=== PATIENT | female | born 1990 | race Caucasian/White ===

== ENCOUNTER 2017-05-24 17:39 | Observation (INO) ==
--- NOTE | 2017-05-24 18:36 | Emergency Department Note ---
Disposition Clinical Impression: Visual hallucinations Depression Qualifiers: Depression Type: unspecified Qualified Code(s): F32.9 - Major depressive disorder, single episode, unspecified Disposition: Still a Patient Condition: Fair Referrals: NONE,PCP [Primary Care Provider] - General Adult HPI - General Chief complaint: ED Altered Mental Status Stated complaint: AMS/SI Time Seen by Provider: 05/24/17 18:35 Source: patient, family Mode of arrival: ambulatory Limitations: no limitations Nursing Notes Reviewed: Yes Vital Signs Reviewed: Yes - History of Present Illness HPI Narrative: 26-year-old female who father brings her in after she was found on the floor she states she took 5 or 6 gabapentin because her back hurt. He became angry in the lobby and that she was going to kill somebody or herself. The patient states she is having visual and auditory hallucinations also. 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 12/11/15 Clindamycin [Cleocin] 300 mg PO BID 7 Days capsule 12/11/15 Loratadine/Pseudophed (12 HR) 1 each PO BID PRN #14 tab.er.12h 01/24/16 [Claritin D (12HR)] NALOXONE 4 MG Nasal Orange [Narcan] 4 mg NS ONCE PRN #1 spray 03/07/17 Allergies Allergy/AdvReac Type Severity Reaction Status Date / Time ibuprofen Allergy Swelling Verified 05/24/17 18:00 of the Eye All systems ED: reviewed and negative except as stated. Constitutional: Denies: fever, chills, weakness, weight change Eyes: Denies: eye pain, eye discharge, vision change ENT ED: Denies: ear pain, throat pain, dental pain, hearing loss, epistaxis, congestion, dysphagia Cardiovascular: Denies: chest pain, palpitations, dyspnea on exertion, edema, syncope Respiratory: Denies: cough, dyspnea, wheezes, hemoptysis, stridor Gastrointestinal: Denies: abdominal pain, nausea, vomiting, diarrhea, constipation, hematemesis, melena, hematochezia Genitourinary: Denies: dysuria, frequency, hematuria, discharge Musculoskeletal: Denies: back pain, neck pain, arthralgia, myalgia Integumentary: Denies: rash, abrasion, lesions Neurological: Denies: headache, weakness, numbness, paresthesias, confusion, abnormal gait, vertigo Psychiatric: Reports: depression, suicidal thoughts, auditory hallucinations, visual hallucinations. 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 - Social History Smoking Status: Current every day smoker Smokeless Tobacco Status: No Alcohol use: Reports: none Drug use: Reports: methamphetamine, IV Drug Use, other Physical Exam - General Limitations: no limitations General appearance: alert, other - Head Head exam: atraumatic, normocephalic, normal inspection - Eye Eye exam: Present: normal appearance, PERRL, EOMI - ENT ENT exam: normal exam, normal oropharynx, mucous membranes moist - Neck Neck exam: Present: normal inspection, full ROM, trachea midline - Chest Chest inspection: Present: normal inspection - Respiratory Respiratory exam: Present: normal lung sounds bilaterally - Cardiovascular Cardiovascular exam: Present: regular rate, normal rhythm, normal heart sounds - Abdominal Exam Abdominal exam: Present: soft, Non-Tender. Absent: tenderness, distention, guarding, rebound, rigidity - Extremities Exam Extremities exam: Present: normal inspection, full ROM. Absent: tenderness, pedal edema - Expanded Lower Extremity Exam Neurovascular/Tendon exam: Absent: motor deficit, sensory deficit, tendon deficit Gait: observed and normal - Back Exam Back exam: Present: normal inspection, full ROM. Absent: tenderness - Neurological Exam Neurological exam: Present: alert, oriented X3 - Psychiatric Psychiatric exam: Present: normal affect, normal mood - Skin Skin exam: Present: warm, dry, intact, normal color Course Vital Signs Temperature 97.7 F 05/24/17 17:55 Pulse Rate 110 05/24/17 17:55 Respiratory Rate 18 05/24/17 17:55 Blood Pressure 116/65 05/24/17 17:55 O2 Sat by Pulse Oximetry 100 05/24/17 17:55 Temperature 97.7 F 05/24/17 17:55 Pulse Rate 110 05/24/17 17:55 Respiratory Rate 18 05/24/17 17:55 Blood Pressure 116/65 05/24/17 17:55 O2 Sat by Pulse Oximetry 100 05/24/17 17:55 Oxygen Delivery Oxygen Delivery Room Air Medical Decision Making - Lab Data Result diagrams: 05/24/17 18:45 Lab Results 05/24/17 05/24/17 05/24/17 Range/Units 18:08 18:17 18:45 WBC 10.1 (4.3-11.1) K/mcL RBC 4.52 (3.82-4.97) M/mcL Hgb 13.6 (11.5-15.4) g/dL Hct 43.1 (35.3-44.9) % MCV 95.4 (83.0-100.0) fL MCH 30.1 (28.0-33.3) pg MCHC 31.6 (31.6-35.5) g/dL RDW 12.9 (11.5-14.5) % Plt Count 313 (140-400) K/mcL MPV 10.4 (9.4-12.4) fL Immature Gran % 0.4 (0-4) % Seg Neutrophils % 45.7 % Lymphocytes % 42.1 % Monocytes % 7.6 % Eosinophils % 2.7 % Basophils % 1.5 % Neutrophils # 4.6 (1.6-8.9) K/mcL Lymphocytes # 4.3 (0.6-4.6) K/mcL Monocytes # 0.8 (0.0-1.3) K/mcL Eosinophils # 0.3 (0.0-0.6) K/mcL Basophils # 0.2 (0.0-0.2) K/mcL POC Glucose 120 H (58-89) Urine Opiates Screen Negative (Giprbx=704) ng/mL Ur Barbiturates Screen Negative (Oyxqws=066) ng/mL Ur Phencyclidine Scrn Negative (Cutoff=25) ng/mL Ur Amphetamines Screen Positive H (Bkvdxp=2567) ng/mL U Benzodiazepines Scrn Positive H (Oxlhly=998) ng/mL Urine Cocaine Screen Negative (Cutoff= 300) ng/mL U Marijuana (THC) Screen Negative (Cutoff = 50) ng/mL S.B.A.R. - S.B.A.R. Recommendation: Recommendation based on pending studies, treatments, or consults S.B.A.R. Report Given to: Dr Nguyễn LangfordB.A.Hany Repor Time: 19:04
[2017-05-24 18:45] LABS: Amphetamine Screen,Urine Positive ng/mL (Cutoff=1000); Barbiturate Screen,Urine Negative ng/mL (Cutoff=200); Benzodiazepines Screen,Urine Positive ng/mL (Cutoff=200); Cannabinoid Screen,Urine Negative ng/mL (Cutoff = 50); Cocaine Screen,Urine Negative ng/mL (Cutoff= 300); Opiate Screen,Urine Negative ng/mL (Cutoff=300); Phencyclidine Screen,Urine Negative ng/mL (Cutoff=25)
[2017-05-24 18:57] LABS: Basophils # 0.2 K/mcL (0.0-0.2); Basophils % 1.5 %; Eosinophils # 0.3 K/mcL (0.0-0.6); Eosinophils % 2.7 %; Hematocrit 43.1 % (35.3-44.9); Hemoglobin 13.6 g/dL (11.5-15.4); Immature Granulocytes % 0.4 % (0-4); Lymphocytes # 4.3 K/mcL (0.6-4.6); Lymphocytes % 42.1 %; Mean Corpuscular HGB Conc 31.6 g/dL (31.6-35.5); Mean Corpuscular Hemoglobin 30.1 pg (28.0-33.3); Mean Corpuscular Volume 95.4 fL (83.0-100.0); Mean Platelet Volume 10.4 fL (9.4-12.4); Monocytes # 0.8 K/mcL (0.0-1.3); Monocytes % 7.6 %; Neutrophils # 4.6 K/mcL (1.6-8.9); Platelet Count 313 K/mcL (140-400); Red Blood Count 4.52 M/mcL (3.82-4.97); Red Cell Distribution Width 12.9 % (11.5-14.5); Segmented Neutrophils % 45.7 %
[2017-05-24 19:07] LABS: Acetaminophen < 1.0 mcg/mL (10-30); Ethanol < 10 mg/dL (0-10); Salicylate < 5.0 mg/dL (15.0-30.0)
[2017-05-24 19:12] LABS: Bilirubin,Urine Negative (Negative); Blood,Urine Negative (Negative); Clarity,Urine Clear (Clear); Color,Urine Yellow (Yellow); Glucose,Urine (UA) Normal (Normal); Ketones,Urine Negative (Negative); Leukocyte Esterase,Urine Negative (Negative); Nitrite,Urine Negative (Negative); Protein,Urine Negative (Neg-Trace); Specific Gravity,Urine 1.027 (1.010-1.025); Urobilinogen,Urine Normal (Normal)
[2017-05-24 19:18] LABS: BUN/Creatinine Ratio 18 (6-26); Blood Urea Nitrogen 14 mg/dL (6-20); Calcium 10.1 mg/dL (8.6-10.3); Carbon Dioxide 26 mEq/L (23-29); Chloride 109 mEq/L (98-107); Glucose 101 mg/dL (70-105); Osmolality,Calculated 295 (280-300); Potassium 3.8 mEq/L (3.5-5.1); Sodium 142 mEq/L (136-145); eGFR For African Americans > 60 (> 60); eGFR For Non-African Americans > 60 (> 60)
--- NOTE | 2017-05-24 20:07 | Emergency Department Note ---
Disposition Clinical Impression: Visual hallucinations Depression Qualifiers: Depression Type: unspecified Qualified Code(s): F32.9 - Major depressive disorder, single episode, unspecified Disposition: Admitted As Inpatient Condition: Fair Referrals: NONE,PCP [Primary Care Provider] - Time of Disposition: 22:45 General Adult HPI - General Chief complaint: ED Altered Mental Status Stated complaint: AMS/SI Time Seen by Provider: 05/24/17 18:35 Source: patient, family Mode of arrival: ambulatory Limitations: no limitations - History of Present Illness Pain Scale: 0 - Related Data Home Medications Medication Instructions Recorded Confirmed No Known Home Drugs 05/24/17 05/24/17 Allergies Allergy/AdvReac Type Severity Reaction Status Date / Time ibuprofen Allergy Swelling Verified 05/24/17 18:00 of the Eye Constitutional: Denies: fever, chills, weakness, weight change Eyes: Denies: eye pain, eye discharge, vision change ENT ED: Denies: ear pain, throat pain, dental pain, hearing loss, epistaxis, congestion, dysphagia Cardiovascular: Denies: chest pain, palpitations, dyspnea on exertion, edema, syncope Respiratory: Denies: cough, dyspnea, wheezes, hemoptysis, stridor Gastrointestinal: Denies: abdominal pain, nausea, vomiting, diarrhea, constipation, hematemesis, melena, hematochezia Genitourinary: Denies: dysuria, frequency, hematuria, discharge Musculoskeletal: Denies: back pain, neck pain, arthralgia, myalgia Integumentary: Denies: rash, abrasion, lesions Neurological: Denies: headache, weakness, numbness, paresthesias, confusion, abnormal gait, vertigo Psychiatric: Reports: depression, suicidal thoughts, auditory hallucinations, visual hallucinations. 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 Manuel Chan. Detailed review of the patient's presentation symptoms medical intervention and concern from the family were discussed. Physical exam was reviewed by myself. See detailed documentation of history and physical exam. Physical exam is unremarkable. Patient is alert she is oriented sitting in the bed no distress. Vital signs are stable. Patient's medical clearance was completed. She is positive for amphetamines and benzos. She also discloses taking gabapentin last night. She does not remember any other events. There was concerned about her stating suicidal ideations and issues overnight. Patient is medically cleared will be evaluated by psychiatric team. Disposition pending workup and treatment course. Patient actively does not have a plan at this point despite a history of substance abuse. - Reevaluation(s) Reevaluation #1: Patient evaluated by the psychiatric team here. She will be admitted to our facility for definitive management. Time: 22:44 Vital Signs Temperature 97.7 F 05/24/17 17:55 Pulse Rate 110 05/24/17 17:55 Respiratory Rate 18 05/24/17 17:55 Blood Pressure 116/65 05/24/17 17:55 O2 Sat by Pulse Oximetry 100 05/24/17 17:55 Temperature 97.7 F 05/24/17 17:55 Pulse Rate 110 05/24/17 17:55 Respiratory Rate 18 05/24/17 17:55 Blood Pressure 116/65 05/24/17 17:55 O2 Sat by Pulse Oximetry 100 05/24/17 17:55 Oxygen Delivery Oxygen Delivery Room Air Medical Decision Making - [facility] Narrative Medical decision making narrative: Substance abuse, altered mentation, suicidal ideation - Medical Records Medical records reviewed: Yes I reviewed the patient's medical records. - Lab Data Lab results reviewed: Yes I reviewed the patient's lab results. Result diagrams: 05/24/17 18:45 05/24/17 18:45 Lab Results 05/24/17 05/24/17 05/24/17 Range/Units 18:08 18:17 18:45 WBC 10.1 (4.3-11.1) K/mcL RBC 4.52 (3.82-4.97) M/mcL Hgb 13.6 (11.5-15.4) g/dL Hct 43.1 (35.3-44.9) % MCV 95.4 (83.0-100.0) fL MCH 30.1 (28.0-33.3) pg MCHC 31.6 (31.6-35.5) g/dL RDW 12.9 (11.5-14.5) % Plt Count 313 (140-400) K/mcL MPV 10.4 (9.4-12.4) fL Immature Gran % 0.4 (0-4) % Seg Neutrophils % 45.7 % Lymphocytes % 42.1 % Monocytes % 7.6 % Eosinophils % 2.7 % Basophils % 1.5 % Neutrophils # 4.6 (1.6-8.9) K/mcL Lymphocytes # 4.3 (0.6-4.6) K/mcL Monocytes # 0.8 (0.0-1.3) K/mcL Eosinophils # 0.3 (0.0-0.6) K/mcL Basophils # 0.2 (0.0-0.2) K/mcL Sodium (136-145) mEq/L Potassium (3.5-5.1) mEq/L Chloride (98-107) mEq/L Carbon Dioxide (23-29) mEq/L BUN (6-20) mg/dL Creatinine (0.60-1.20) mg/dL Est GFR ( Amer) (> 60) Est GFR (Non-Af Amer) (> 60) BUN/Creatinine Ratio (6-26) Glucose (70-105) mg/dL POC Glucose 120 H (58-89) Calculated Osmolality (280-300) Calcium (8.6-10.3) mg/dL Serum , Qual (Negative) Urine Color (Yellow) Urine Clarity (Clear) Urine pH (5.0-8.0) pH Units Ur Specific [place] (1.010-1.025) Urine Protein (Neg-Trace) mg/dL Urine Glucose (UA) (Normal) mg/dL Urine Ketones (Negative) mg/dL Urine Blood (Negative) Urine Nitrite (Negative) Urine Bilirubin (Negative) Urine Urobilinogen (Normal) mg/dL Ur Leukocyte Esterase (Negative) Salicylates (15.0-30.0) mg/dL Urine Opiates Screen Negative (Cmbssj=574) ng/mL Acetaminophen (10-30) mcg/mL Ur Barbiturates Screen Negative (Ceqefl=538) ng/mL Ur Phencyclidine Scrn Negative (Cutoff=25) ng/mL Ur Amphetamines Screen Positive H (Zxgond=4332) ng/mL U Benzodiazepines Scrn Positive H (Iccgjx=142) ng/mL Urine Cocaine Screen Negative (Cutoff= 300) ng/mL U Marijuana (THC) Screen Negative (Cutoff = 50) ng/mL Ethyl Alcohol (0-10) mg/dL 05/24/17 05/24/17 05/24/17 Range/Units 18:45 18:45 19:00 WBC (4.3-11.1) K/mcL RBC (3.82-4.97) M/mcL Hgb (11.5-15.4) g/dL Hct (35.3-44.9) % MCV (83.0-100.0) fL MCH (28.0-33.3) pg MCHC (31.6-35.5) g/dL RDW (11.5-14.5) % Plt Count (140-400) K/mcL MPV (9.4-12.4) fL Immature Gran % (0-4) % Seg Neutrophils % % Lymphocytes % % Monocytes % % Eosinophils % % Basophils % % Neutrophils # (1.6-8.9) K/mcL Lymphocytes # (0.6-4.6) K/mcL Monocytes # (0.0-1.3) K/mcL Eosinophils # (0.0-0.6) K/mcL Basophils # (0.0-0.2) K/mcL Sodium 142 (136-145) mEq/L Potassium 3.8 (3.5-5.1) mEq/L Chloride 109 H (98-107) mEq/L Carbon Dioxide 26 (23-29) mEq/L BUN 14 (6-20) mg/dL Creatinine 0.79 (0.60-1.20) mg/dL Est GFR ( Amer) > 60 (> 60) Est GFR (Non-Af Amer) > 60 (> 60) BUN/Creatinine Ratio 18 (6-26) Glucose 101 (70-105) mg/dL POC Glucose (58-89) Calculated Osmolality 295 (280-300) Calcium 10.1 (8.6-10.3) mg/dL Serum , Qual Negative (Negative) Urine Color Yellow (Yellow) Urine Clarity Clear (Clear) Urine pH 6.0 (5.0-8.0) pH Units Ur Specific [place] 1.027 H (1.010-1.025) Urine Protein Negative (Neg-Trace) mg/dL Urine Glucose (UA) Normal (Normal) mg/dL Urine Ketones Negative (Negative) mg/dL Urine Blood Negative (Negative) Urine Nitrite Negative (Negative) Urine Bilirubin Negative (Negative) Urine Urobilinogen Normal (Normal) mg/dL Ur Leukocyte Esterase Negative (Negative) Salicylates < 5.0 L (15.0-30.0) mg/dL Urine Opiates Screen (Hhsqfe=275) ng/mL Acetaminophen < 1.0 L (10-30) mcg/mL Ur Barbiturates Screen (Vpszka=197) ng/mL Ur Phencyclidine Scrn (Cutoff=25) ng/mL Ur Amphetamines Screen (Mdtmzy=1788) ng/mL U Benzodiazepines Scrn (Gmtkjy=951) ng/mL Urine Cocaine Screen (Cutoff= 300) ng/mL U Marijuana (THC) Screen (Cutoff = 50) ng/mL Ethyl Alcohol < 10 (0-10) mg/dL
[2017-05-24] MEDS ORDERED: Ziprasidone injection 20 MG/ML VIAL IM ONE (22:57)
[2017-05-24] MEDS ORDERED: Haloperidol Lactate 5 MG/ML VIAL IM PRN (23:02)
[2017-05-24] MEDS ORDERED: hydrOXYzine pamoate 25 MG CAPSULE PO PRN (23:02)
[2017-05-24] MEDS ORDERED: traZODone 50 MG TABLET PO PRN (23:02)
[2017-05-24] MEDS ORDERED: Mag Hydrox/Al Hydrox/Simeth 30 ML UDC PO PRN (23:02)
[2017-05-24] MEDS ORDERED: *HR* LORazepam 2 MG/ML VIAL IM PRN (23:02)
[2017-05-24] MEDS ORDERED: *HR* LORazepam 1 MG TABLET PO PRN (23:02)
[2017-05-24] MEDS ORDERED: MOM Conc 10 ML UD.LIQ PO PRN (23:02)
[2017-05-24] MEDS ORDERED: Acetaminophen 325 MG TABLET PO PRN (23:02)
[2017-05-25 00:55] VITALS: BP 86/48
[2017-05-25] MEDS ORDERED: Nicotine 21 MG PATCH.TD24 TD SCH (09:00)
== END 2017-05-25 02:27 | DRG 753 ==
LOC: EMEROO 17:39 → 1ANU 22:54 → INTOOBSV 22:54 → 1ANU 05-25 00:30
PROVIDERS: ADMIT Psychiatry & Neurology Forensic Psychiatry; ATTEND Psychiatry & Neurology Forensic Psychiatry

== ENCOUNTER 2017-05-25 02:24 | Observation (INO) ==
[2017-05-25] MEDS ORDERED: 0.9 % Sodium Chloride 1,000 ML ONE (03:27)
[2017-05-25] MEDS ORDERED: Naloxone 0.4 MG/ML INJ IVP PRN (03:31)
[2017-05-25] MEDS ORDERED: 0.9 % Sodium Chloride 1,000 ML IVC ONE (03:33)
--- NOTE | 2017-05-25 03:45 | Internal Med History&Physical ---
Date of Encounter: 05/25/17 Time of Encounter: 01:00 Assessment and Plan (1) Drug overdose Current visit: Yes Status: Acute Pt has benzo and amphetamine positive. Was given Geodon for combative behavior. Shows low responsive now, respond to flumazenil. Consider benzo overdose. - Cont cardio and pulse oximetry monitoring - IVF for hypotension. - Pt has patent airway and regular breathing now. Flumazenil PRN - NPO, aspiration precautions Qualifiers: Encounter type: initial encounter Injury intent: accidental or unintentional Qualified Code(s): T50.901A - Poisoning by unspecified drugs, medicaments and biological substances, accidental (unintentional), initial encounter (2) Suicidal ideation Current visit: Yes Status: Acute Will consult psych. Place 1:1 sitter. (3) Homicidal ideation Current visit: Yes Status: Acute As above (4) DVT prophylaxis Current visit: Yes Status: Acute Pt is young, no AC needed. Internal Medicine - H&P: HPI Chief complaint: AMS Admitted From: Home Plans for Post Hospital Care: Transfer Psych Facility History of present illness: Ms. Maki is a 26 year old female with Hx of drug abuse, hx of previous drug over dose, present to ER for SI and HI, Per ER documentation, pt took 5-6 gabapentin pills for back pain. Pt is combative and she was treated with Geodon 20 mg im and admitted to psych unit for SI/HI. Pt was found hypotension and non- responsive in psych unit and hospitalist consult was called. Pt has benzo and amphetamine positive in ER. She has patent airway and breathing well. Pt was give flumazenil 0.2mg iv once, she is more responsive and open eye on stimulation. Pt was transferred to for further observation for benzo overdose. Past Med Surg Social Fam HX - Past Medical History Medical history: no medical history Psychiatric history: anxiety, bipolar, depression, schizophrenia, previous psychiatric hospitalization - Past Surgical History Surgical History: - Social History Smoking Status: Current every day smoker Smokeless Tobacco Status: No Alcohol use: none Drug use: methamphetamine, IV Drug Use, other - Family History Mother History Unknown: Yes Internal Medicine - H&P: Meds No Known Home Drugs 05/24/17 [History] 3 Allergy/AdvReac Type Severity Reaction Status Date / Time ibuprofen Allergy Swelling Verified 05/24/17 18:00 of the Eye All Systems PM: A 10-system review of systems was performed and is negative for pertinent findings except as documented above in the HPI. - Constitutional Vitals: Temp Pulse Resp BP Pulse Ox 98.0 F 94 14 90/49 92 05/25/17 03:08 05/25/17 03:08 05/25/17 03:08 05/25/17 03:08 05/25/17 03:08 General appearance: Present: no acute distress Exam: Sleeping, non verbal, open eyes on stimulation. - Head Head exam: Present: atraumatic, normocephalic - Eye Eye exam: Present: PERRL, conjuntiva pink, sclera anicteric Pupils: Present: PERRL - Neck Neck exam general surgery: Present: supple, trachea midline. Absent: lymphadenopathy - Respiratory Respiratory exam: Present: CTAB. Absent: accessory muscle use, rales, rhonchi, wheezes - Cardiovascular Cardiovascular exam: Present: RRR, +S1, +S2. Absent: diastolic murmur, gallop, rubs, systolic murmur - GI/Abdominal GI/Abdominal exam: Present: normal bowel sounds, soft, no peritoneal signs. Absent: distended, tenderness - Extremities Exam Extremities exam: Present: warm, radial pulses palpable and symmetrical. Absent : calf tenderness, cyanotic, pedal edema - Neurological Exam Neurological exam: Present: CN II-XII intact, oriented X3, no focal deficits. Absent: pronater drift, facial droop, speech deficit - Skin Skin exam: Present: dry, intact
[2017-05-25] MEDS: 0.9 % Sodium Chloride 1,000 ML IVC SCH ×2 (04:40→16:00)
[2017-05-25 05:58] LABS: Basophils # 0.1 K/mcL (0.0-0.2); Basophils % 1.3 %; Eosinophils # 0.3 K/mcL (0.0-0.6); Hematocrit 38.2 % (35.3-44.9); Immature Granulocytes % 0.3 % (0-4); Lymphocytes # 3.3 K/mcL (0.6-4.6); Lymphocytes % 46.5 %; Mean Corpuscular HGB Conc 30.9 g/dL (31.6-35.5); Mean Corpuscular Hemoglobin 30.1 pg (28.0-33.3); Mean Corpuscular Volume 97.4 fL (83.0-100.0); Mean Platelet Volume 10.6 fL (9.4-12.4); Monocytes # 0.6 K/mcL (0.0-1.3); Monocytes % 9.1 %; Neutrophils # 2.7 K/mcL (1.6-8.9); Platelet Count 250 K/mcL (140-400); Red Blood Count 3.92 M/mcL (3.82-4.97); Segmented Neutrophils % 38.8 %
[2017-05-25 06:05] LABS: Hemoglobin 11.8 g/dL (11.5-15.4)
[2017-05-25 06:15] LABS: BUN/Creatinine Ratio 19 (6-26); Blood Urea Nitrogen 15 mg/dL (6-20); Calcium 8.7 mg/dL (8.6-10.3); Carbon Dioxide 25 mEq/L (23-29); Chloride 112 mEq/L (98-107); Glucose 82 mg/dL (70-105); Osmolality,Calculated 292 (280-300); Potassium 4.1 mEq/L (3.5-5.1); Sodium 141 mEq/L (136-145); eGFR For African Americans > 60 (> 60); eGFR For Non-African Americans > 60 (> 60)
--- NOTE | 2017-05-25 10:07 | Event Note ---
<Rodriguez Wing - Last Filed: 05/25/17 10:02> Date of Encounter: 05/25/17 Time of Encounter: 10:02 Patient seen this morning. She is easily awoken. Alert and oriented x3. Denies headache, blurry vision, neck pain, chest pain, palpitations, cough, shortness of breath, abdominal pain, nausea, vomiting, diarrhea, lower extremity pain. She denies suicidal ideations, homicidal ideations. Patient is currently on IV fluids for hypotension. Patient's blood pressure remains 96 over 80s. She is requesting water and diet. We will order a bedside swallow before starting a diet. <Marco Antonio Posadas - Last Filed: 05/25/17 18:13> Date of Encounter: 05/25/17 Ms Maki was placed in observation earlier this AM due to lethargy and somnolence. She also had hypotension. Her BP has improved and she is alert and mentating. She is medically clear for return to psych when arranged.
[2017-05-26] MEDS: Nicotine 21 MG PATCH.TD24 TD SCH ×2 (00:02→08:18)
--- NOTE | 2017-05-26 15:30 | Discharge Summary ---
<MeccaRodriguez Metcalf - Last Filed: 05/26/17 15:24> Date of Encounter: 05/26/17 Time of Encounter: 15:24 - Discharge Diagnosis (1) Drug overdose Priority: Primary Status: Resolved Qualifiers: Encounter type: initial encounter Injury intent: accidental or unintentional Qualified Code(s): T50.901A - Poisoning by unspecified drugs, medicaments and biological substances, accidental (unintentional), initial encounter (2) Suicidal ideation Priority: Secondary Status: Acute (3) Homicidal ideation Priority: Secondary Status: Acute (4) DVT prophylaxis Priority: Secondary Status: Acute Hospital course: Ms. Maki is a 26 year old female presented to the emergency department after her father found her on the floor passed out. Patient stated that she took 5 or 6 gabapentin because her back hurt and she was having trouble sleeping. She also stated to the ER physician that she was having visual and auditory hallucinations. Patient's urine drug screen was positive for amphetamines and benzodiazepines. In the emergency department there is concern patient had suicidal ideations. Psychiatry was consulted and admitted her to [place] [facility] facility. Patient was combative, unclear if this is at the psych facility or in ER and was given Geodon 20 mg. Thereafter she was found on responsive, hypotensive in the psych unit and was transferred to . Patient was given flumazenil 0.2 mg IV once and she became more responsive thereafter and placed on IV fluids. Patient's hypotension resolved with IV fluids. She also became awake, alert oriented 3, passed bedside swallow evaluation tolerated her diet. Patient is ready for discharge. Awaiting psychiatric disposition to see if patient will be discharged back to [facility] psychiatric unit or home. Discharge discussed with: patient - Time Spent with Patient Total time spent providing and/or coordinating discharge services: - Discharge Medications Home Medications: No Known Home Drugs 05/24/17 [History] Allergies/Adverse Reactions: 3 Allergy/AdvReac Type Severity Reaction Status Date / Time ibuprofen Allergy Swelling Verified 05/24/17 18:00 of the Eye Date of admission: 05/25/17 02:26 Primary care physician: PCP NONE Consults: 05/25/17 03:33 Consult to Psychiatry [CONS] Routine Consulting Provider: Psychiatry [place] Reason for Consult: Drug abuse, SI/HI Call Completed: Yes Discharging clinician: Rodriguez Pankajkuma [place] Anticipated date of discharge: 05/26/17 - Constitutional Vitals: Temp Pulse Resp BP Pulse Ox 98.4 F 102 24 111/76 99 05/26/17 14:33 05/26/17 14:33 05/26/17 14:33 05/26/17 14:33 05/26/17 14:33 General appearance: Present: no acute distress - Patient Status Disposition: Transfer Psychiatric Hosp Condition: Good Functional capacity at discharge: independent ambulation Overall status at discharge: patient is progressing back to baseline - Discharge Instructions Follow Up With: NONE,PCP [Primary Care Provider] - - Diet and Activity Activity: increase activity as tolerated Diet: advance to your usual diet <CuauhtemocMarco Antonio London - Last Filed: 05/26/17 18:45> Date of Encounter: 05/26/17 - Discharge Diagnosis (1) Drug overdose Status: Resolved Qualifiers: Encounter type: initial encounter Injury intent: accidental or unintentional Qualified Code(s): T50.901A - Poisoning by unspecified drugs, medicaments and biological substances, accidental (unintentional), initial encounter (2) Depression Priority: Secondary Status: Acute Qualifiers: Depression Type: unspecified Qualified Code(s): F32.9 - Major depressive disorder, single episode, unspecified (3) Suicidal ideation Status: Acute (4) Tobacco abuse Priority: Secondary Status: Chronic (5) Polysubstance abuse Priority: Secondary Status: Chronic Hospital course: Ms. Maki is a 26 year old female - Time Spent with Patient Total time spent providing and/or coordinating discharge services: Date of admission: 05/25/17 02:26 Primary care physician: PCP NONE Consults: 05/25/17 03:33 Consult to Psychiatry [CONS] Routine Consulting Provider: Psychiatry [place] Reason for Consult: Drug abuse, SI/HI Call Completed: Yes - Constitutional Vitals: Temp Pulse Resp BP Pulse Ox 98.4 F 102 24 111/76 99 05/26/17 14:33 05/26/17 14:33 05/26/17 14:33 05/26/17 14:33 05/26/17 14:33 - Attending Attestation I examined this patient and my medical decision-making was reviewed with the Resident Physician on 05/26/17. I agree with the documented findings, disposition and treatment plan as described except to the extent set forth below. Ms Maki has been in observation for hypotension and somnolence most likely related to meds. She is now alert and medically stable for return to psychiatric unit. Exam alert comfortable Heart not tachy No wheeze Plan D/C to psych
[2017-05-26] MEDS ORDERED: *HR* LORazepam 2 MG/ML VIAL IVP ONE (18:28)
[2017-05-26] MEDS ORDERED: Acetaminophen 325 MG TABLET PO PRN (19:59)
[2017-05-26 22:05] VITALS: BP 110/75
== END 2017-05-27 04:48 ==
LOC: 2NNU → 3ANU 23:29
PROVIDERS: ADMIT Internal Medicine; ATTEND Internal Medicine

== ENCOUNTER 2017-05-27 04:53 | Inpatient (IN) | END 2017-05-31 12:25 | disposition home or self-care (01) | DRG 751 | LOC: 1ANU 04:53 → UNDODISIN 07-01 12:25 | PROVIDERS: ADMIT Psychiatry & Neurology Forensic Psychiatry; ATTEND Psychiatry & Neurology Psychiatry ==

== ENCOUNTER 2020-09-29 15:03 | Observation (INO) ==
[2020-09-29 16:01] LABS: Basophils # 0.1 K/mcL (0.0-0.2); Basophils % 0.9 %; Eosinophils % 0.3 %; Hematocrit 40.5 % (35.3-44.9); Hemoglobin 12.9 g/dL (11.5-15.4); Immature Granulocytes % 0.3 % (0-4); Lymphocytes # 3.4 K/mcL (0.6-4.6); Lymphocytes % 29.1 %; Mean Corpuscular HGB Conc 31.9 g/dL (31.6-35.5); Mean Corpuscular Hemoglobin 31.5 pg (28.0-33.3); Mean Platelet Volume 10.4 fL (9.4-12.4); Monocytes % 8.8 %; Neutrophils # 7.1 K/mcL (1.6-8.9); Platelet Count 306 K/mcL (140-400); Red Blood Count 4.09 M/mcL (3.82-4.97); Red Cell Distribution Width 11.9 % (11.5-14.5); Segmented Neutrophils % 60.6 %; White Blood Count 11.6 K/mcL (4.3-11.1)
[2020-09-29 16:02] LABS: Amorphous Sediment,Urine Few per hpf (None-Few); Bacteria,Urine Few per hpf (None-Few); Bilirubin,Urine Negative (Negative); Blood,Urine Trace (Negative); Clarity,Urine Turbid (Clear); Color,Urine Yellow (Yellow); Glucose,Urine (UA) Normal (Normal); Ketones,Urine 10 mg/dL (Negative); Leukocyte Esterase,Urine Trace (Negative); Mucus,Urine Many per lpf (None-Few); Nitrite,Urine Negative (Negative); Protein,Urine 50 mg/dL (Neg-Trace); Specific Gravity,Urine > 1.030 (1.010-1.025); Squamous Epithelial Cell,Urine Moderate per hpf (None-Few)
[2020-09-29 16:21] LABS: Acetaminophen < 10 mcg/mL (10-20); Alanine Aminotransferase 37 Units/L (7-52); Albumin 4.6 g/dL (3.5-5.7); Albumin/Globulin Ratio 1.5 (1.1-2.2); Alkaline Phosphatase 99 Units/L (34-104); Aspartate Amino Transferase 36 Units/L (13-39); BUN/Creatinine Ratio 12 (6-26); Bilirubin,Direct 0.2 mg/dL (0.0-0.2); Bilirubin,Indirect 0.6 mg/dL (0.0-1.0); Bilirubin,Total 0.8 mg/dL (0.3-1.0); Blood Urea Nitrogen 9 mg/dL (6-20); Calcium 9.6 mg/dL (8.6-10.3); Carbon Dioxide 25 mEq/L (23-29); Chloride 107 mEq/L (98-107); Ethanol < 10 mg/dL (Less than 10); Globulin 3.1 g/dL (2.4-3.5); Glucose 97 mg/dL (70-105); Osmolality,Calculated 291 (280-300); Potassium 3.1 mEq/L (3.5-5.1); Salicylate < 2.5 mg/dL (15.0-30.0); Sodium 141 mEq/L (136-145); Total Protein 7.7 g/dL (6.4-8.9); eGFR For African Americans > 60 (> 60); eGFR For Non-African Americans > 60 (> 60)
[2020-09-29 16:44] LABS: Amphetamine Screen,Urine Positive ng/mL (Cutoff=1000); Barbiturate Screen,Urine Negative ng/mL (Cutoff=200); Benzodiazepines Screen,Urine Positive ng/mL (Cutoff=200); Cannabinoid Screen,Urine Negative ng/mL (Cutoff = 50); Cocaine Screen,Urine Negative ng/mL (Cutoff= 300); Opiate Screen,Urine Negative ng/mL (Cutoff=300); Phencyclidine Screen,Urine Negative ng/mL (Cutoff=25)
[2020-09-29] MEDS ORDERED: Ondansetron 4 MG/2 ML VIAL IVP PRN (20:38)
[2020-09-29] MEDS ORDERED: Naloxone 0.4 MG/ML INJ IVP PRN (20:38)
[2020-09-29] MEDS ORDERED: *HR* LORazepam 2 MG/ML VIAL IVP PRN ×3 (21:59→22:07)
[2020-09-30] MEDS: traZODone 50 MG TABLET PO SCH ×2 (00:34→21:11)
[2020-09-30] MEDS ORDERED: cloNIDine HCL 0.1 MG TABLET PO PRN (01:18)
[2020-09-30 03:06] LABS: Basophils # 0.1 K/mcL (0.0-0.2); Basophils % 1.4 %; Eosinophils # 0.1 K/mcL (0.0-0.6); Eosinophils % 2.3 %; Hematocrit 38.1 % (35.3-44.9); Hemoglobin 12.7 g/dL (11.5-15.4); Immature Granulocytes % 0.5 % (0-4); Lymphocytes # 2.3 K/mcL (0.6-4.6); Lymphocytes % 40.8 %; Mean Corpuscular HGB Conc 33.3 g/dL (31.6-35.5); Mean Platelet Volume 10.4 fL (9.4-12.4); Monocytes # 0.6 K/mcL (0.0-1.3); Monocytes % 9.6 %; Neutrophils # 2.6 K/mcL (1.6-8.9); Platelet Count 249 K/mcL (140-400); Red Blood Count 3.85 M/mcL (3.82-4.97); Red Cell Distribution Width 11.9 % (11.5-14.5); Segmented Neutrophils % 45.4 %; White Blood Count 5.7 K/mcL (4.3-11.1)
[2020-09-30 03:24] LABS: BUN/Creatinine Ratio 14 (6-26); Blood Urea Nitrogen 9 mg/dL (6-20); C-Reactive Protein 18 mg/L (Less than 10); Calcium 8.8 mg/dL (8.6-10.3); Carbon Dioxide 25 mEq/L (23-29); Chloride 107 mEq/L (98-107); Glucose 94 mg/dL (70-105); Magnesium 2.2 mg/dL (1.6-2.6); Osmolality,Calculated 288 (280-300); Phosphorous 4.1 mg/dL (2.7-4.5); Potassium 3.4 mEq/L (3.5-5.1); Sodium 140 mEq/L (136-145); eGFR For African Americans > 60 (> 60); eGFR For Non-African Americans > 60 (> 60)
[2020-09-30] MEDS ORDERED: hydrOXYzine pamoate 25 MG CAPSULE PO PRN (08:53)
[2020-09-30] MEDS: Divalproex (12 HR) 500 MG TABLET PO SCH ×2 (09:26→21:11)
[2020-09-30] MEDS: Folic Acid 1 MG TABLET PO SCH (13:25)
[2020-09-30] MEDS: *HR* Heparin 5,000 UNIT/ML VIAL SQ SCH ×2 (13:25→21:12)
[2020-09-30] MEDS ORDERED: Thiamine (B-1) 100 MG, Folic Acid 1 MG, MVI, adult with vitamin K 10 ML in 0.9 % Sodi... IVPB SCH (18:00)
[2020-10-01] MEDS: *HR* Heparin 5,000 UNIT/ML VIAL SQ SCH (05:22)
[2020-10-01 05:37] LABS: BUN/Creatinine Ratio 20 (6-26); Blood Urea Nitrogen 13 mg/dL (6-20); Calcium 8.7 mg/dL (8.6-10.3); Carbon Dioxide 23 mEq/L (23-29); Chloride 110 mEq/L (98-107); Glucose 100 mg/dL (70-105); Magnesium 1.9 mg/dL (1.6-2.6); Osmolality,Calculated 288 (280-300); Phosphorous 3.8 mg/dL (2.7-4.5); Potassium 3.7 mEq/L (3.5-5.1); Sodium 139 mEq/L (136-145); eGFR For African Americans > 60 (> 60); eGFR For Non-African Americans > 60 (> 60)
[2020-10-01] MEDS: Divalproex (12 HR) 500 MG TABLET PO SCH (09:41)
[2020-10-01] MEDS: Folic Acid 1 MG TABLET PO SCH (09:42)
[2020-10-01 10:34] VITALS: BP 103/68; PULSE 93; TEMP 98.1; O2SAT 98
== END 2020-10-01 12:48 | disposition home or self-care (01) ==
LOC: EMEROOARM 15:03 → 3BNU 15:03 → SUATTDRO 20:25 → 3BNU 21:27
PROVIDERS: ADMIT Family Medicine; ATTEND Internal Medicine

== ENCOUNTER 2021-03-11 22:27 | Inpatient (IN) ==
[2021-03-12] MEDS ORDERED: Acetaminophen 325 MG TABLET PO ONE (01:25)
[2021-03-12 01:35] LABS: Basophils # 0.1 K/mcL (0.0-0.2); Basophils % 0.4 %; Eosinophils # 0.1 K/mcL (0.0-0.6); Eosinophils % 0.6 %; Hematocrit 33.3 % (35.3-44.9); Hemoglobin 10.6 g/dL (11.5-15.4); Immature Granulocytes % 0.7 % (0-4); Lymphocytes # 2.9 K/mcL (0.6-4.6); Lymphocytes % 18.2 %; Mean Corpuscular HGB Conc 31.8 g/dL (31.6-35.5); Mean Corpuscular Hemoglobin 29.9 pg (28.0-33.3); Mean Corpuscular Volume 93.8 fL (83.0-100.0); Mean Platelet Volume 10.3 fL (9.4-12.4); Monocytes # 1.1 K/mcL (0.0-1.3); Monocytes % 6.7 %; Neutrophils # 11.7 K/mcL (1.6-8.9); Platelet Count 456 K/mcL (140-400); Red Blood Count 3.55 M/mcL (3.82-4.97); Red Cell Distribution Width 12.5 % (11.5-14.5); Segmented Neutrophils % 73.4 %; White Blood Count 15.9 K/mcL (4.3-11.1)
[2021-03-12 01:46] LABS: Alanine Aminotransferase 30 Units/L (7-52); Albumin 3.5 g/dL (3.5-5.7); Albumin/Globulin Ratio 0.9 (1.1-2.2); Alkaline Phosphatase 97 Units/L (34-104); Aspartate Amino Transferase 36 Units/L (13-39); BUN/Creatinine Ratio 12 (6-26); Bilirubin,Total 0.5 mg/dL (0.3-1.0); Blood Urea Nitrogen 8 mg/dL (6-20); Calcium 8.8 mg/dL (8.6-10.3); Carbon Dioxide 25 mEq/L (23-29); Chloride 103 mEq/L (98-107); Globulin 3.9 g/dL (2.4-3.5); Glucose 116 mg/dL (70-105); Osmolality,Calculated 281 (280-300); Potassium 3.6 mEq/L (3.5-5.1); Sodium 136 mEq/L (136-145); Total Protein 7.4 g/dL (6.4-8.9); eGFR For African Americans > 60 (> 60); eGFR For Non-African Americans > 60 (> 60)
[2021-03-12] MEDS ORDERED: Piperacillin/Tazobactam 3.375 GM in 0.9 % Sodium Chloride Mini Bag 100 ML IVPB ONE (01:51)
[2021-03-12] MEDS ORDERED: diazePAM 2 MG TABLET PO ONE (01:55)
[2021-03-12] MEDS ORDERED: 0.9 % Sodium Chloride 1,000 ML IVC ONE ×2 (01:56→01:58)
[2021-03-12 02:33] LABS: INR 1.3; Prothrombin Time 14.4 Seconds (9.4-12.1)
[2021-03-12 02:34] LABS: Influenza A PCR Negative (Negative); Influenza B PCR Negative (Negative); Resp. Syncytial Virus PCR Negative (Negative)
[2021-03-12 02:36] LABS: SARS-CoV-2 by PCR (In House) Negative (Negative)
[2021-03-12] MEDS ORDERED: Isovue-370 500 ML BOTTLE IVP ONE (02:51)
[2021-03-12 03:20] LABS: Troponin I 0.03 ng/mL (< 0.04)
[2021-03-12] MEDS ORDERED: Acetaminophen 325 MG TABLET PO PRN (05:28)
[2021-03-12] MEDS ORDERED: Naloxone 0.4 MG/ML INJ IVP PRN (05:28)
[2021-03-12] MEDS ORDERED: Ondansetron 4 MG/2 ML VIAL IVP PRN (05:28)
[2021-03-12] MEDS ORDERED: *HR* Promethazine 25 MG/ML VIAL IM PRN (05:28)
[2021-03-12] MEDS ORDERED: Melatonin 3 MG TABLET PO PRN (05:28)
[2021-03-12] MEDS ORDERED: hydrOXYzine pamoate 25 MG CAPSULE PO PRN (05:38)
[2021-03-12] MEDS ORDERED: Cefepime HCl 1,000 MG in Water for inj. (sterile) 10 ML IVP SCH (08:00)
[2021-03-12] MEDS: *HR* Enoxaparin 40 MG/0.4 ML SYRINGE SQ SCH (08:13)
[2021-03-12] MEDS: Azithromycin 500 MG in 0.9 % Sodium Chloride 250 ML IVPB SCH (08:13)
[2021-03-12] MEDS: Ringers Solution, Lactated 1,000 ML IVC SCH ×2 (08:13→19:37)
[2021-03-12] MEDS: Piperacillin/Tazobactam 3.375 GM in 0.9 % Sodium Chloride Mini Bag 100 ML IVPB SCH (15:08)
[2021-03-12] MEDS ORDERED: Benzonatate 100 MG CAPSULE PO PRN (20:02)
[2021-03-12] MEDS: *HR* LORazepam 2 MG/ML VIAL IVP PRN (20:38)
[2021-03-13] MEDS: Piperacillin/Tazobactam 3.375 GM in 0.9 % Sodium Chloride Mini Bag 100 ML IVPB SCH ×3 (00:26→17:16)
[2021-03-13] MEDS: cloNIDine HCL 0.1 MG TABLET PO PRN ×3 (01:35→12:23)
[2021-03-13] MEDS: *HR* Enoxaparin 40 MG/0.4 ML SYRINGE SQ SCH (05:57)
[2021-03-13] MEDS: Azithromycin 500 MG in 0.9 % Sodium Chloride 250 ML IVPB SCH (05:57)
[2021-03-13 08:02] LABS: Hematocrit 29.7 % (35.3-44.9); Hemoglobin 9.5 g/dL (11.5-15.4); Mean Corpuscular Hemoglobin 29.7 pg (28.0-33.3); Mean Corpuscular Volume 92.8 fL (83.0-100.0); Mean Platelet Volume 10.7 fL (9.4-12.4); Platelet Count 434 K/mcL (140-400); Red Cell Distribution Width 12.9 % (11.5-14.5); White Blood Count 13.9 K/mcL (4.3-11.1)
[2021-03-13 08:11] LABS: BUN/Creatinine Ratio 10 (6-26); Blood Urea Nitrogen 5 mg/dL (6-20); Calcium 8.1 mg/dL (8.6-10.3); Carbon Dioxide 21 mEq/L (23-29); Chloride 110 mEq/L (98-107); Glucose 124 mg/dL (70-105); Magnesium 1.8 mg/dL (1.6-2.6); Osmolality,Calculated 275 (280-300); Phosphorous 2.3 mg/dL (2.7-4.5); Potassium 4.1 mEq/L (3.5-5.1); Sodium 133 mEq/L (136-145); eGFR For African Americans > 60 (> 60); eGFR For Non-African Americans > 60 (> 60)
[2021-03-13] MEDS: Folic Acid 1 MG TABLET PO SCH (08:25)
[2021-03-13] MEDS: Thiamine (B-1) 100 MG TABLET PO SCH (08:26)
[2021-03-13] MEDS: Vitamin B Complex/Vit C/Vit E 1 EACH TABLET PO SCH (08:26)
[2021-03-13] MEDS: *HR* LORazepam 2 MG/ML VIAL IVP PRN (11:47)
[2021-03-13] MEDS: Vancomycin 1,500 MG/265 ML IV.SOLN IVPB SCH (17:15)
[2021-03-13] MEDS ORDERED: *HR* LORazepam 2 MG/ML VIAL IVP ONE (17:50)
[2021-03-14] MEDS: Piperacillin/Tazobactam 3.375 GM in 0.9 % Sodium Chloride Mini Bag 100 ML IVPB SCH ×2 (00:14→08:01)
[2021-03-14] MEDS: Vancomycin 1,500 MG/265 ML IV.SOLN IVPB SCH (03:35)
[2021-03-14] MEDS: *HR* Enoxaparin 40 MG/0.4 ML SYRINGE SQ SCH (05:36)
[2021-03-14 07:43] VITALS: BP 106/66; PULSE 128; TEMP 98.5; O2SAT 96
[2021-03-14] MEDS: Vitamin B Complex/Vit C/Vit E 1 EACH TABLET PO SCH (08:01)
[2021-03-14] MEDS: Folic Acid 1 MG TABLET PO SCH (08:01)
[2021-03-14] MEDS: *HR* LORazepam 2 MG/ML VIAL IVP PRN (08:01)
[2021-03-14] MEDS: Thiamine (B-1) 100 MG TABLET PO SCH (08:01)
[2021-03-14] MEDS: cloNIDine HCL 0.1 MG TABLET PO PRN (08:01)
[2021-03-14 10:02] LABS: Hematocrit 33.2 % (35.3-44.9); Hemoglobin 10.8 g/dL (11.5-15.4); Mean Corpuscular HGB Conc 32.5 g/dL (31.6-35.5); Mean Corpuscular Volume 92.2 fL (83.0-100.0); Platelet Count 424 K/mcL (140-400); Red Cell Distribution Width 12.8 % (11.5-14.5); White Blood Count 10.5 K/mcL (4.3-11.1)
[2021-03-14 10:12] LABS: BUN/Creatinine Ratio 15 (6-26); Blood Urea Nitrogen 8 mg/dL (6-20); Calcium 8.6 mg/dL (8.6-10.3); Carbon Dioxide 19 mEq/L (23-29); Chloride 108 mEq/L (98-107); Glucose 127 mg/dL (70-105); Osmolality,Calculated 284 (280-300); Potassium 3.9 mEq/L (3.5-5.1); Sodium 137 mEq/L (136-145); eGFR For African Americans > 60 (> 60); eGFR For Non-African Americans > 60 (> 60)
[2021-03-14] MEDS ORDERED: Doxycycline 100 MG CAPSULE PO SCH (10:30)
== END 2021-03-14 10:40 | disposition left against medical advice (07) | DRG 720 ==
LOC: EMEROOARM 22:27 → 4WAOSI 22:27 → SUATTDRO 03-12 04:23 → 4WAOSI 03-12 05:23
PROVIDERS: ADMIT Internal Medicine; ATTEND Internal Medicine